=== PATIENT | female | born 1965 | race Caucasian/White ===

== ENCOUNTER 2021-12-10 05:52 | Day surgery (SDC) | payer OTHER ==
[2021-12-10] MEDS ORDERED: Lactated Ringers 1,000 ML IV ONE (07:01)
[2021-12-10] MEDS ORDERED: Xylocaine-Mpf 2% 5 Ml Vial ONE (07:50)
[2021-12-10] MEDS ORDERED: DIPRIVAN 200 MG/20 ML IV ONE ×2 (07:50→08:10)
[2021-12-10] MEDS ORDERED: Lactated Ringers 1,000 ML IV SCH (08:00)
[2021-12-10] MEDS ORDERED: ATROPINE SULFATE 1MG ONE (08:03)
[2021-12-10 09:03] VITALS: O2SAT 94
[2021-12-10 09:05] VITALS: BP 117/66; PULSE 85
--- NOTE | 2021-12-10 13:43 | OP ---
SURGERY DATE/TIME: 12/10/2021 0750 PREOPERATIVE DIAGNOSIS: Screening exam. POSTOPERATIVE DIAGNOSIS: Small polyps in the sigmoid colon. PROCEDURE: Colonoscopy with cold forceps biopsy. SURGEON: Dr. Swapnil Franklin. ANESTHESIA: MAC. Medications given by anesthesia department. HISTORY: The patient is a 56-year-old white female presenting now for screening colonoscopy. She was appraised of the risks of the procedure including the risk of perforation, phlebitis, untoward reaction to medication, bleeding and missed lesions. The patient verbalized her understanding and desired to have the procedure performed. DESCRIPTION OF PROCEDURE: The patient was given the medications by the anesthesia department. She had continuous pulse oximetry, ECG monitoring, intermittent blood pressure monitoring during the examination. She was placed in the left lateral decubitus position. A digital rectal examination was performed and revealed normal anal sphincter tone and no masses. The flexible Olympus pediatric colonoscope was used to intubate the rectum. A view of the colon was developed sequentially to the cecum. Upon insertion and withdrawal was noted small what appeared to be hyperplastic-type polyps. These were biopsied using cold biopsy technique to determine the nature of the lesion. The scope was removed from the patient who tolerated the procedure well and was sent back to OP recovery in good condition. The prep is noted to be fair to good.
== END 2021-12-10 09:12 | disposition home or self-care (01) ==
LOC: SDC 05:52
PROVIDERS: ATTEND Family Medicine
DX: Z12.11 Encounter for screening for malignant neoplasm of colon (principal); K63.5 Polyp of colon
CPT/HCPCS: J0461; J2704

== ENCOUNTER 2022-03-13 09:27 | Day surgery (SDC) | payer OTHER ==
[2022-03-13] MEDS ORDERED: Depo-Medrol 40 MG/ML IM ONE (09:28)
[2022-03-13] MEDS ORDERED: Sodium Chloride 0.9(Preservative Free) 10 ML IJ ONE (09:28)
[2022-03-13] MEDS ORDERED: LIDOCAINE HCL 1% 50 MG/5 ML VL PF IJ ONE (09:28)
[2022-03-13] MEDS ORDERED: DIPRIVAN 200 MG/20 ML IV ONE (11:03)
[2022-03-13] MEDS ORDERED: Lactated Ringers 1,000 ML IV ONE (11:27)
--- NOTE | 2022-03-13 12:15 | XRAY ---
Indication: Lumbar SHIVANI. Intraoperative fluoroscopy provided for 11 seconds. 2 digital spot image submitted for interpretation demonstrates posterior needle tip projecting just posterior to lumbosacral interspace. Small amount of contrast injected for needle tip placement. Correlate with intraoperative findings/report.
--- NOTE | 2022-03-13 12:25 | XRAY ---
11 seconds of fluoroscopy was used in surgery for a lumbar SHIVANI.
== END 2022-03-13 11:21 | disposition home or self-care (01) ==
LOC: SDC-PAIN 09:27
PROVIDERS: ATTEND Psychiatry & Neurology Pain Medicine
DX: M54.16 Radiculopathy, lumbar region (principal); Z79.899 Other long term (current) drug therapy
CPT/HCPCS: 62323; 72100; 77003; J1030; J2001; J2704; Q9966

== ENCOUNTER 2022-06-12 14:48 | Day surgery (SDC) | payer OTHER ==
[2022-06-12] MEDS ORDERED: BUPIVACAINE 0.5% VIAL IJ ONE (14:49)
[2022-06-12] MEDS ORDERED: Depo-Medrol 40 MG/ML IM ONE (14:49)
[2022-06-12] MEDS ORDERED: DIPRIVAN 200 MG/20 ML IV ONE (17:26)
[2022-06-12] MEDS ORDERED: Lactated Ringers 1,000 ML IV ONE (17:33)
--- NOTE | 2022-06-12 19:22 | XRAY ---
Indication: Bilateral SI joint injection. Intraoperative fluoroscopy provided for 13 seconds. 4 digital spot image submitted for interpretation demonstrates posterior needle tip projecting over the left and right SI joint. Correlate with intraoperative findings/report.
--- NOTE | 2022-06-13 08:33 | XRAY ---
13 seconds of fluoroscopy was used in surgery for a bilateral sacroiliac joint injection.
== END 2022-06-12 17:50 | disposition home or self-care (01) ==
LOC: SDC-PAIN 14:48
PROVIDERS: ATTEND Psychiatry & Neurology Pain Medicine
DX: M46.1 Sacroiliitis, not elsewhere classified (principal); Z79.899 Other long term (current) drug therapy
CPT/HCPCS: 27096; 72202; 77002; J1030; J2704; G0260

== ENCOUNTER 2024-12-28 18:44 | Emergency (ER) | payer OTHER ==
[2024-12-28 19:11] VITALS: TEMP 97.7
[2024-12-28] MEDS ORDERED: TORAdol 30 mg Injection ONE (19:47)
[2024-12-28] MEDS: TORAdol 30 mg Injection IM ONE (19:48)
[2024-12-28 20:05] VITALS: BP 95/69; PULSE 78; RESP 18; O2SAT 96
--- NOTE | 2024-12-28 20:19 | ERPHSYRPT ---
- History of Present Illness Time Seen by Provider: 12/28/24 20:23 Source: patient Exam Limitations: no limitations Patient Subjective Stated Complaint: pt states that she smashed her arm in a lid Triage Nursing Assessment: pt ambulated into the er; pt is axo x4; c/o arm pain; pt states 8/10; bruising present to left forearm; good cap refill to left hand; strong left radial pulse; good ROM to left arm; no respiratory distress present; vitals wnl Physician History: Patient is a 59-year-old female presents to our ED for evaluation of bruising to the left forearm. Patient states she was at work working with a trash container when the heavy lid injured her left forearm. Injury occurred just prior to arrival. Pain described as an ache that is mostly on the dorsal aspect of her left forearm. Patient states that the injury did not involve her left elbow. Patient denies left elbow pain and is able to range her left elbow through full range of motion in a painless manner. No other injuries reported. Pain desc ribed as an ache that is localized. No radiation. Pain worse with palpation. Pain improves with rest. Patient voices no other complaints or concerns at this time. Portions of this note were created with voice recognition technology. There may be grammatical, spelling, punctuation or sound alike errors Occurred: just prior to arrival Method of Injury: direct blow Quality: constant Severity of Pain-Max: moderate Severity of Pain-Current: mild Extremities Pain Location: forearm: left Modifying Factors: Improves With: other (Palpation. Pain improved with anti- inflammatory medication) Associated Symptoms: none Allergies/Adverse Reactions: No Known Drug Allergies Allergy (Verified 12/28/24 19:01) Home Medications: Albuterol Sulfate [Albuterol Sulfate Hfa] 2 puffs IH Q4-6HPRN PRN 12/07/21 [History] Hydrocodone/Acetaminophen [Hydrocodone-Acetamin 7.5-325] 1 tab PO TID PRN 12/28/24 [History] Umeclidinium Brm/Vilanterol Tr [Anoro Ellipta 62.5-25 Mcg INH] 1 each IH DAILY 12/28/24 [History] Hx Tetanus, Diphtheria Vaccination/Date Given: Yes Hx Influenza Vaccination/Date Given: Yes Hx Pneumococcal Vaccination/Date Given: No Travel Risk - International Travel Have you traveled outside of the country in past 3 weeks: No - Emerging Infectious Disease Are you exhibiting symptoms associated with any current EIDs: No - Review of Systems All Other Systems: Reviewed and Negative - Past Medical History Pertinent Past Medical History: Yes Neurological History: Migraines ENT History: No Pertinent History Cardiac History: No Pertinent History Respiratory History: Asthma Endocrine Medical History: No Pertinent History Musculoskeletal History: No Pertinent History, Arthritis GI Medical History: Ulcer History: No Pertinent History Psycho-Social History: No Pertinent History Female Reproductive Disorders: Fibroids Other Medical History: chronic back pain. Previous fx in R hand , temporary pins placed and removed. as well as onset of arthritis - Past Surgical History Past Surgical History: Yes Neuro Surgical History: No Pertinent History Cardiac: No Pertinent History Respiratory: No Pertinent History Gastrointestinal: No Pertinent History Genitourinary: No Pertinent History Musculoskeletal: Orthopedic Surgery Female Surgical History: Hysterectomy Other Surgical History: r thumb, 2 SHIVANI BACK, right thumb temp. pins placed and removed - Social History Smoking Status: Current every day smoker How long have you smoked: 35 Exposure to second hand smoke: Yes Drug Use: none - Social Determinants of Health Will the patient participate in the screening: Yes Do you worry about a steady place to live?: No Do you have any problems with any of the following?: No known problems In the past 12 months,have you had to go without utilities?: No Transportation Issues: No Has anyone in your support network made you feel unsafe?: No Have you or anyone in your house had to go w/o enough food: No - Nursing Vital Signs Nursing Vital Signs: Initial Vital Signs Pulse Rate 81 12/28/24 19:01 Blood Pressure 126/76 12/28/24 19:01 O2 Sat by Pulse Oximetry 97 12/28/24 19:01 Pain Scale Pain Intensity 8 - Physical Exam General Appearance: alert Eyes, Ears, Nose, Throat Exam: moist mucous membranes Neck Exam: non-tender, supple Cardiovascular/Respiratory Exam: chest non-tender, normal breath sounds, regular rate/rhythm, no respiratory distress Abdominal Exam: non-tender, No guarding Back Exam: normal inspection, No vertebral tenderness Shoulder Exam: normal inspection, non-tender, no evidence of injury, normal ROM Elbow/Forearm Exam: normal inspection, non-tender, no evidence of injury, normal ROM Wrist Exam: normal inspection, non-tender, no evidence of injury, normal ROM Hand Exam: normal inspection, non-tender, no evidence of injury, normal ROM Neuro/Tendon Exam: normal sensation, normal motor functions Mental Status Exam: alert, oriented x 3, cooperative Skin Exam: normal color, warm, dry SpO2 Interpretation: normal SpO2: 96 O2 Delivery: Room Air - Course Nursing assessment & vital signs reviewed: Yes - Radiology Exams Forearm X-ray Interpretation: Interpreted by me (No fracture or dislocation. ) Ordered Tests: Active Orders 24 hr Category Date Time Status FOREARM Stat Exams 12/28/24 19:45 Taken Medication Summary Discontinued Medications Generic Name Dose Route Start Last Admin Trade Name Gerson PRN Reason Stop Dose Admin Ketorolac Tromethamine 30 mg 12/28/24 19:45 12/28/24 19:48 Ketorolac Tromethamine 30 Mg/Ml Inj IM 12/28/24 19:46 30 mg STAT ONE Administration Ketorolac Tromethamine Confirm 12/28/24 19:47 Ketorolac Tromethamine 30 Mg/Ml Inj Administered 12/28/24 19:48 Dose 30 mg .ROUTE .[employer]-MED ONE - Progress Progress: improved Progress Note: 59-year-old female presents to our ED with a work-related injury. Patient states she was working on a trash can when the lid injured her left forearm. Physical exam reveals tenderness of the dorsal aspect of the left forearm. No pain involving the shoulder elbow wrist or hand. Preliminary x-ray read is negative for fracture or dislocation. Formal read pending. Patient received IM dose of Toradol. A prescription for Toradol forwarded to patient's pharmacy. Patient placed in the left upper extremity sling for comfort. Patient neurovasc intact distally post splint application. Patient referred to the orthopedic clinic for follow-up. Work note provided. Patient appears comfortable and denies other complaints. She voices no other complaints or concerns at this time. Portions of this note were created with voice recognition technology. There may be grammatical, spelling, punctuation or sound alike errors Complexity of problem addressed is moderate acute complicated. No critical care time. Complex of data reviewed and analyzed as moderate. Dr. Marie independently reviewed the x-ray of the left forearm. No fractures or dislocations observed. However this is a preliminary read. Formal read by radiologist will be completed in the morning. Patient referred to the orthopedic clinic for follow-up. Risk of complication and or risk of morbidity/mortality of patient management is moderate. A prescription for Toradol forwarded to patient's pharmacy. Work precautions included in a work note. Vital stable. Time spent to discharge patient is approximately 15 minutes. Plan of care established for shared decision making. No social determinants of health present to impede follow-up. Portions of this note were created with voice recognition technology. There may be grammatical, spelling, punctuation or sound alike errors 12/28/24 20:28 Counseled pt/family regarding: diagnosis, need for follow-up, rad results - Departure Departure Disposition: Home Clinical Impression: Forearm contusion Condition: Stable Critical Care Time: No Referrals: MARISELA HAIDER NP [Primary Care Provider, [facility]] - Follow up/PCP as directed Additional Instructions: Discharge/Care Plan LUIS CAIN was seen on 12/28/24 in the Emergency Room. The patient was counseled regarding Diagnosis,Lab results, Imaging studies, need for follow up and when to return to the Emergency Room. Prescriptions given: Discharge Note I have spoken with the patient and/or caregivers. I have explained the patient's condition, diagnosis and treatment plan based on the information available to me at this time. I have answered the patient's and/or caregiver's questions and addressed any concerns. The patient and/or caregivers have as good understanding of the patient's diagnosis, condition and treatment plan as can be expected at this point. The vital signs have been stable. The patient's condition is stable and appropriate for discharge from the emergency department. The patient will pursue further outpatient evaluation with the primary care physician or other designated or consulting physician as outlined in the discharge instructions. The patient and/or caregivers are agreeable to this plan of care and follow-up instructions have been explained in detail. The patient and/or caregivers have received these instruction. The patient/and or caregivers are aware that any significant change in condition or worsening of symptoms should prompt an immediate return to this or the closest emergency department or call 911. Forms: Work/School Release Form Prescriptions: Ketorolac Trometh 10 mg Tab [TORAdol 10 MG TABLET] 10 mg PO TID 5 Days #15 tablet Outpatient Orders: Ortho Referral Time Frame: 1 Day, Facility: [facility], Location: [facility]
--- NOTE | 2024-12-29 08:41 | XRAY ---
Indication: Pain following trauma. Comparison: None 2 view right forearm demonstrates osteopenia and radiocarpal joint space narrowing. No other bony, articular, or soft tissue abnormalities.
== END 2024-12-28 20:28 | disposition home or self-care (01) ==
LOC: ED 18:44
DX: S50.12XA Contusion of left forearm, initial encounter (principal); W20.8XXA Other cause of strike by thrown, projected or falling object, initial encounter; Y92.212 Middle school as the place of occurrence of the external cause; Y99.0 Civilian activity done for income or pay; Z79.891 Long term (current) use of opiate analgesic; Z79.899 Other long term (current) drug therapy; Z72.0 Tobacco use